=== PATIENT | male | born 1965 | race Caucasian/White ===

== ENCOUNTER → 2017-02-24 | Outpatient (CLI) | payer BC ==
[2017-02-24 18:04] LABS: BASO % 0.6 %; BASO ABS # 0.04 K/uL (0-0.2); EOS % 1.4 %; HEMATOCRIT 46.9 % (42-52); HEMOGLOBIN 16.6 g/dL (14.0-18.0); IG# 0.02 K/uL (0.00-0.02); LYMPH % 18.5 %; LYMPH ABS # 1.33 K/uL (1.2-3.4); MEAN CELL VOLUME 89.5 fL (80-100); MEAN CORPUSCULAR HEMOGLOBIN 31.7 pg (25-34); MEAN CORPUSCULAR HGB CONC 35.4 g/dl (32-36); MEAN PLATELET VOLUME 9.8 fL (7.4-10.4); MONO % 7.8 %; MONO ABS # 0.56 K/uL (0.11-0.59); NEUT % 71.4 %; NEUT ABS # 5.14 K/uL (1.4-6.5); PLATELET COUNT 160 K/uL (130-400); RED CELL DISTRIBUTION WIDTH CV 13.4 % (11.5-14.5); RED CELL DISTRIBUTION WIDTH SD 43.4 fL (36.4-46.3); WHITE BLOOD COUNT 7.19 K/uL (4.8-10.8)
[2017-02-24 18:52] LABS: ALBUMIN 4.1 gm/dl (3.4-5.0); ALT/SGPT 42 U/L (12-78); AST/SGOT 27 U/L (15-37); BLOOD UREA NITROGEN 15 mg/dl (7-18); CALCIUM 8.9 mg/dl (8.5-10.1); CARBON DIOXIDE 23 mmol/L (21-32); CREATININE 1.09 mg/dl (0.60-1.40); GLUCOSE 94 mg/dl (70-99); POTASSIUM 4.2 mmol/L (3.5-5.1); SODIUM 135 mmol/L (136-145)
[2017-02-24 19:07] LABS: CHOLESTEROL 179 mg/dl (0-200); LDL CHOLESTEROL CALCULATED 98 mg/dl; PHOSPHORUS 3.1 mg/dl (2.5-4.9)
== END | disposition home or self-care (01) ==
LOC: C.LABMFLN 10:46
PROVIDERS: ATTEND Family Medicine
DX: R06.02 Shortness of breath (principal); F41.8 Other specified anxiety disorders; E78.5 Hyperlipidemia, unspecified; Z12.5 Encounter for screening for malignant neoplasm of prostate